=== PATIENT | female | born 1990 | race Caucasian/White ===

== ENCOUNTER 2017-07-02 17:42 | Inpatient (IN) | payer OTHER ==
[~2017-07-02] VITALS: Ht 167.6 cm; Wt 92.0 kg
[~2017-07-02 17:42] MED LIST: AZITHROMYCIN250 MG PO; FLONASE ALLERG9.9 ML NS; NORTREL1 EAC1 PO
[2017-07-02] MEDS ORDERED: VITAFOL-OB+DHA1 EACH PO (20:54)
[2017-07-02] MEDS ORDERED: ZANTAC300 MG PO (20:54)
--- NOTE | 2017-07-03 10:13 | PR ---
[facility] [address] [place], [place] [address] Signed Progress Notes IP Datetime Report Generated by CPJarek: 07/03/2017 10:13 PROGRESS NOTES: [id number] Impression: Reassuring heart rate Plan: Continue present management; Cervical Ripening Informed Consent Obtain: Vaginal Delivery; Risks, Benefits and Alternatives Discussed VITAL SIGNS: [id number] Vital Signs: Reviewed VS Notable Details: blood pressures remain elevated EXAM: [id number] Dilatation: 1.0 Effacement: 30 Station: -2 Uterine Contractions: every one to two minutes MEMBRANES: [id number] Membrane Status: Intact Comments: patient with preeclampsia, undergoing cytotec induction. Continue to monitor status is reassuring. Fetus A: [id number] FHR Baseline: 130's Variability: Moderate 6-25bpm Accelerations: 15X15 Decelerations: None FHR Category: Category I Presentation: Vertex Comments on Fetus A: reactive Fetus B: [id number] Signing Physician: Tali Sanchez MD CC: *Electronically Signed* 07/03/17 1013 TALI SANCHEZ MD PATIENT NAME: MARTINEZ JAY RECORD #: [id number] PROGRESS NOTE DATE OF : 89 PHYSICIAN: TALI SANCHEZ MD RPT #: [id number] REPORT IS CONFIDENTIAL AND NOT TO BE RELEASED WITHOUT AUTHORIZATION
--- NOTE | 2017-07-03 12:52 | PR ---
[facility] [address] [place], [place] [address] Signed Progress Notes IP Datetime Report Generated by CPN: 07/03/2017 12:52 PROGRESS NOTES: [id number] Impression: Reassuring heart rate Plan: Continue present management; Induction; Cervical Ripening Informed Consent Obtain: Vaginal Delivery; Risks, Benefits and Alternatives Discussed VITAL SIGNS: [id number] Vital Signs: Reviewed; Within Normal Limits VS Notable Details: blood pressures remain elevated EXAM: [id number] Dilatation: 1.0 Effacement: 40 Station: -2 Uterine Contractions: every one to two minutes MEMBRANES: [id number] Membrane Status: Intact Comments: patient comfortable, sleeping through contractions Fetus A: [id number] FHR Baseline: 150 Variability: Moderate 6-25bpm Accelerations: 15X15 Decelerations: None FHR Category: Category I Presentation: Vertex Comments on Fetus A: reactive Fetus B: [id number] Signing Physician: Tali Sanchez MD CC: *Electronically Signed* 07/03/17 1252 TALI SANCHEZ MD PATIENT NAME: VERÓNICA JAYRee WALDENE PROGRESS NOTE DATE OF : [birth year] PHYSICIAN: TALI SANCHEZ MD RPT #: [id number] REPORT IS CONFIDENTIAL AND NOT TO BE RELEASED WITHOUT AUTHORIZATION
--- NOTE | 2017-07-04 13:28 | NUR ---
07/04/17 1328 Maribel Juan 1301 PATIENT ARRIVES TO PACU AWAKE, BUT DROWSY, TEARFUL, C/O PAIN. RESP EVEN AND UNLABORED, MASK AT 10 LITERS. 1305 PATIENT HAS BOGGY UTERUS, FIRM WITH MASSAGE, CONTINUED BLEEDING FROM VAGINA, BRIGHT RED BLOOD. DR SCHAEFER NOTIFIED, AND TO BEDSIDE WITH NEW ORDERS. 1310 ANESTHESIA AT BEDSIDE MANAGING PATIENT'S PAIN AND IM DOSE OF HEMABATE GIVEN BY DIONE ACEVEDO. 1315 PATIENT CONTINUES TO HAVE BLEEDING WITH FUNDAL MASSAGE. LR BOLUS GIVEN PER DR SCHAEFER REQUEST. DIONE ANESTHESIA STILL AT BEDSIDE. 1320 PATIENT ON ROOM AIR. CONTINUES TO C/O ABD PAIN, ALSO TEARFUL BECUASE SHE WANTS TO SEE HER SON. VERSED AND DILAUDID GIVEN BY DIONE ACEVEDO. 1325 PATIENT SLEEPING WITH SNORING RESP. 97% ON ROOM AIR.
--- NOTE | 2017-07-18 08:53 | OR ---
[facility] [address] [place], [place] [address] Signed DATE OF PROCEDURE: 07/04/17 PROCEDURE PERFORMED: Primary low transverse section. PREOPERATIVE DIAGNOSES Term intrauterine gestation @ 37w4d Nonreassuring heart tracing. Preeclampsia without severe features. Remote from delivery. Failed induction of labor POSTOPERATIVE DIAGNOSES Term intrauterine @ 37w4d Nonreassuring heart tracing. Preeclampsia without severe features. Remote from delivery. Failed induction of labor SLATE PICKER: Dr. Chavira ANESTHESIA: General. ESTIMATED BLOOD LOSS: 1100 mL. INTRAOPERATIVE COMPLICATIONS: None. FINDINGS: Viable male in the vertex position. 7#13oz. Apgars 6 and 9 at one and five minutes respectivly. Centrally inserted 3 vessel cord without evidence of abruption. No obvious cause for deceleration noted. Cord gasses obtained. Hemostasis at end of the procedure. Normal tubes, ovaries, and uterus. INDICATIONS Ms. Jay is a pleasant 26-year-old, G1, P0, with term IUP, presented to Labor and Delivery and diagnosed with preeclampsia without severe features. Blood pressures were elevated, but not in the severe range and induction of labor was attempted. The patient received six doses of Cytotec with continued unfavorable cervix. She received 1 dose of Cervidil and cervix again remained unripe. Following the dose of Cervidil, a vaginal exam was performed to assess for possible Cook catheter, and demonstrated an unripe cervix and shortly thereafter, the fetus had a deep spontaneous deceleration with slow return to baseline. heart tracing was then reassuring. We discussed the possibility that a section, may be needed if the heart tracing became more concerning and approximately 30 minutes later, the patient had minimal variability with Electronically Signed By: ILEANA TROTTER DO 07/18/17 0853 PATIENT NAME: MARTINEZ JAY OPERATIVE REPORT DATE OF : 89 PHYSICIAN: ILEANA TROTTER DO REPORT #: [id number] REPORT IS CONFIDENTIAL AND NOT TO BE RELEASED WITHOUT AUTHORIZATION [facility] [address] [place], [place] [address] Signed recurrent late decelerations. Decision was made for a stat section after informed consent was obtained from the patient. The patient was then taken to the operating room. TECHNIQUE The patient was brought to the operating room. A time-out was performed to confirm correct procedure and correct patient. Spinal anesthesia was attempted, but was not easily obtained and decision was made to proceed with general anesthetic. The patient was prepped in the supine position with a bump on her right hip. ICPs were all running and Ancef 2 g were given preoperatively per SKIP protocol. Heparin was not indicated. Anesthesia was adequately established. A Pfannenstiel skin incision was made and carried down to and through the fascia in the midline. Fascial incision was extended bilaterally using curved Florez scissors. The underlying rectus muscles were dissected bluntly and sharply and the peritoneum entered bluntly. Peritoneal incision was extended bilaterally using blunt dissection and the lower uterine segment was identified. A bladder blade was placed and a hysterotomy was created using a surgical scalpel. Hysterotomy was extended bilaterally using blunt dissection. Amniotic sac was then ruptured and surgeon's hand was placed into the uterine cavity and elevated into the abdomen and the was delivered easily with the assistance of fundal pressure. Oral nasopharynx were bulb suctioned and the was vigorous and cried. The was then handed off to the waiting bulk mail technician for further care. Cord gases were obtained and cord blood was obtained for routine analysis. The placenta was manually expressed intact with a centrally inserted 3 vessel cord with no noted abnormalities. The uterus was exteriorized and the uterine cavity cleared of remaining products of conception and blood clots. Hysterotomy was then repaired using 0 Vicryl in a running lock stitch and a 2nd imbricating layer of 0 Vicryl was then applied. The patient had multiple areas of the hysterotomy that continued to ooze and these were made hemostatic using 0 Vicryl in [id number] sutures with good hemostasis. The patient did have some poor uterine tone and extra 20 units of Pitocin were placed in the IV and 1000 mcg of Cytotec were placed into the rectum. The uterus was then firm. The pelvis was irrigated and found to be hemostatic. ACell sheet was applied to the lower uterine segment after the tubes and ovaries were identified and found to be normal. Peritoneum was reapproximated using 2-0 Vicryl in a running nonlocked manner. Rectus muscles were reapproximated using 0 Vicryl interrupted simple sutures of 0 Vicryl. The rectus was noted to be hemostatic and ACell powder was applied to the rectus sheath. The fascia was reapproximated using 0 Vicryl in a running nonlocked stitch. The subcutaneous layer was then reapproximated using 3-0 Vicryl in a running nonlocked later. Skin is reapproximated using surgical twila with good hemostasis and cosmesis. The uterus was Crede'd for approximately 200 mL of additional blood and the patient was taken to the PACU in good and stable condition. Sponge, needle, and instrument count were correct x2 at the end of procedure. Dr. Chavira was present and participated in all portions of procedure. Electronically Signed By: ILEANA TROTTER DO 07/18/17 0853 PATIENT NAME: MARTINEZ JAY OPERATIVE REPORT DATE OF : 89 PHYSICIAN: ILEANA TROTTER DO REPORT #: [id number] REPORT IS CONFIDENTIAL AND NOT TO BE RELEASED WITHOUT AUTHORIZATION [address] [place] [address] Signed Ileana Trotter DO JJAYME/Brittaney /[id number] cc: Tali Sanchez MC Electronically Signed By: ILEANA TROTTER DO 07/18/17 0853 PATIENT NAME: MARTINEZ JAY OPERATIVE REPORT DATE OF : [birth year] PHYSICIAN: ILEANA TROTTER DO REPORT #: [id number] REPORT IS CONFIDENTIAL AND NOT TO BE RELEASED WITHOUT AUTHORIZATION
== END 2017-07-06 15:00 | disposition home or self-care (01) | DRG 766 ==
LOC: FBCO 17:42 → FBC 19:20
PROVIDERS: ADMIT Obstetrics & Gynecology
PROC: 3E033VJ Introduction of Other Hormone into Peripheral Vein, Percutaneous Approach (ICD-10-PCS; 2017-07-04)
PROC: 10D00Z1 Extraction of Products of Conception, Low, Open Approach (ICD-10-PCS; principal; 2017-07-04 12:00)
DX: O76 Abnormality in fetal heart rate and rhythm complicating labor and delivery (principal); O14.94 Unspecified pre-eclampsia, complicating childbirth; Z3A.37 37 weeks gestation of pregnancy; Z37.0 Single live birth
CPT/HCPCS: 01961; 36415; 59025; 76819; 82565; 82570; 82803; 84156; 84450; 84520; 84550; 85025; 85027; 99213; C1763; J0330; J1100; J1170; J1885; J2250; J2274; J2405; J2590; J2704; J3010; J7120